=== PATIENT | male | born 1985 | race Caucasian/White ===

== ENCOUNTER 2018-04-05 09:39 | Inpatient (IN) | payer OTHER ==
--- NOTE | 2018-04-05 10:17 | EDPHY ---
H & P Smoking Status: Never smoked Time Seen by Provider: 04/05/18 10:00 HPI/ROS: CHIEF COMPLAINT: Dysphagia, dental pain HISTORY OF PRESENT ILLNESS: 32-year-old male with a history of HIV positive presents to the emergency department complaining of dysphagia over last few days. The patient states that he started having some pain in his left lower tooth that had broken off a few years ago. He noted some mild swelling around the area by the broken tooth and has since swelling to the left side of his neck which she thought was a lymph noted. He has had increasing difficulty swallowing. Not associated with pain. He states the cannot even take a big drink of water because it will feel like it gets stuck. He denies pain in his chest or difficulty breathing. Denies abdominal pain. No vomiting. No fevers or chills. He did take ibuprofen at 6:30 a.m.. REVIEW OF SYSTEMS: Constitutional: No fever, no chills. Eyes: No double or blurry vision. ENT: Dysphagia as above. Fractured tooth. No sore throat. Respiratory: No cough, no shortness of breath. Cardiac: No chest pain. Gastrointestinal: No abdominal pain, vomiting or diarrhea. Genitourinary: No dysuria. Musculoskeletal: No neck or back pain. Skin: No rashes. Neurological: No headache. (Esther Jaramillo) Past Medical/Surgical History: HIV positive diagnosed 3 years ago (Esther Jaramillo) Social History: Single and lives in [place] (Esther Jaramillo) Physical Exam: General Appearance: Alert, no distress. Afebrile. No apparent distress. Eyes: Pupils equal and round. Extraocular motions are all intact. ENT: Mouth: Mucous membranes moist. No muffled voice or trismus. His left lower 3rd molar is fractured. There is some very mild swelling to the buccal mucosa. No gingival mucosal swelling. No evidence of obvious abscess. His neck is supple with palpable left anterior cervical and left submandibular lymphadenopathy. Nontender to palpate. Respiratory: No wheezing, rhonchi, or rales, lungs are clear to auscultation. Cardiovascular: Regular rate and rhythm. Gastrointestinal: Abdomen is soft and nontender, no masses, no rebound or guarding, bowel sounds normal. Neurological: Alert and oriented x 3, cranial nerves II through XII grossly intact Skin: Warm and dry, no rashes. Musculoskeletal: Nontender to palpate along the cervical, thoracic or lumbar spine. Neck is supple. Extremities: Full range of motion and no peripheral edema. Psychiatric: Patient is oriented X 3, there is no agitation. (Esther Jaramillo) Constitutional: Initial Vital Signs Temperature (C) 36.9 C 04/05/18 09:44 Heart Rate 85 04/05/18 09:44 Respiratory Rate 16 04/05/18 09:44 Blood Pressure 161/101 H 04/05/18 09:44 O2 Sat (%) 94 04/05/18 09:44 O2 Delivery Mode Room Air Allergies/Adverse Reactions: No Known Allergies Allergy (Verified 04/05/18 14:03) Home Medications: Medication Instructions Recorded Bictegrav/Emtricit/Tenofov Ala 1 each PO DAILY 04/05/18 [Biktarvy 50-200-25 mg Tablet] Hydrocodone/Acetaminophen [Vicodin 1 each PO Q8HRS PRN 04/05/18 5-300 mg Tablet] Ibuprofen [Motrin (*)] 200 mg PO TID PRN 04/05/18 Amoxicillin/Clavulanate Pot 875 mg PO BID #20 tab 04/06/18 [Augmentin 875 MG TAB (*)] methylPREDNISolone [Medrol Dose 1 each PO AD #1 ea 04/06/18 Doni] Medical Decision Making - Diagnostics Imaging: Discussed imaging studies w/ call or contact centre operator Radiologist - Diagnostics Imaging Results: Imaging Impressions Neck CT 04/05/18 10:21 Impression: Long segment of left parapharyngeal abscess/loculated fluid collections/phlegmon, along with surrounding tissue swelling as above described. Findings and recommendations discussed with Esther Jaramillo PA-C at 1132 hours on April 05, 2018. Final report concurs with initial preliminary interpretation. ED Course/Re-evaluation: 32-year-old male presents to the emergency department with dysphagia. His infectious disease doctor, Dr. Gisele Bustamante, advised he come to the emergency department for evaluation. Given the dysphagia and neck swelling, I recommended CT imaging of the neck with IV contrast. I discussed the pros and cons including radiation exposure and the patient verbalized understanding and agreed. CT imaging revealed parapharyngeal abscess measuring 2.5 x 2 cm x 3.5 cm. This appears to be encroaching on his airway. There is also reactive lymph nodes noted. I spoke with on-call ENT PA, Briana Rangel, who will come to evaluate the patient. The patient was initially given 600 mg of IV clindamycin per ENT request as well as 10 mg of IV Decadron. I spoke with his infectious disease doctor, Dr. Gisele Bustamante, who recommended 3 g of Unasyn Q 6 hr. The patient will be admitted to Dr. Ghislaine Zhou, hospitalist, to the step- down unit. ENT did not feel that incision and drainage was required at this time. They thought it was more of a phlegmon more than a definitive abscess. The case was discussed with Dr. Christopher Ramírez, secondary supervising physician, who did not directly evaluate the patient but agrees with treatment and plan. ( Esther Jaramillo) I did not see this patient while he was in the emergency department. However his care was discussed with the PA while the patient was in the department. I agree with treatment plan and management (Christopher Ramírez) Differential Diagnosis: Including but not limited to abscess, cellulitis, carcinoma (Esther Jaramillo) - Data Points Laboratory Results: Laboratory Results 04/05/18 10:15 04/05/18 10:15 Medications Given: Discontinued Medications Hydrocodone Bitart/Acetaminophen ([place] 5/325) 1 tab PO EDNOW ONE Stop: 04/05/18 15:14 Last Admin: 04/05/18 15:17 Dose: 1 tab Dexamethasone (Decadron Injection) 10 mg IVP EDNOW ONE Stop: 04/05/18 11:55 Last Admin: 04/05/18 12:00 Dose: 10 mg Dexamethasone (Decadron Injection) 8 mg IVP Q12 LEONCIO Stop: 04/06/18 09:01 Last Admin: 04/06/18 08:23 Dose: 8 mg Clindamycin Phosphate/Dextrose (Cleocin 600 Mg (Premix)) 50 mls @ 100 mls/hr IV EDNOW ONE PRN Reason: Protocol Stop: 04/05/18 12:26 Last Admin: 04/05/18 12:01 Dose: 50 mls Ampicillin Sodium/Sulbactam (Sodium 3 gm/ Sodium Chloride) 100 mls @ 200 mls/ hr IV EDNOW ONE PRN Reason: Protocol Stop: 04/05/18 12:53 Last Admin: 04/05/18 12:50 Dose: 100 mls Ampicillin Sodium/Sulbactam (Sodium 3 gm/ Sodium Chloride) 100 mls @ 200 mls/ hr IV Q6H LEONCIO PRN Reason: Protocol Stop: 05/05/18 19:59 Last Admin: 04/06/18 08:23 Dose: 100 mls Ibuprofen (Motrin) 600 mg PO EDNOW ONE Stop: 04/05/18 15:15 Last Admin: 04/05/18 15:17 Dose: 600 mg Ibuprofen (Motrin) 200 mg PO TID PRN PRN Reason: Pain, Mild Stop: 10/02/18 15:56 Last Admin: 04/06/18 05:13 Dose: 200 mg Lorazepam (Ativan Injection) 1 mg IVP EDNOW ONE Stop: 04/05/18 12:49 Last Admin: 04/05/18 12:50 Dose: 1 mg Oxycodone HCl (Oxycodone Ir) 5 - 10 mg PO Q3HRS PRN PRN Reason: Pain, Severe Able to Take PO Stop: 04/15/18 15:53 Last Admin: 04/06/18 05:14 Dose: 10 mg Point of Care Test Results: Chemistry 04/05/18 10:17 POC Sodium 142 mEq/L mEq/L (135-145) POC Potassium 3.9 mEq/L mEq/L (3.3-5.0) POC Chloride 103 mEq/L mEq/L (97-110) POC BUN 10 mg/dL mg/dL (7-23) POC Creatinine 1.0 mg/dL mg/dL (0.7-1.3) POC Glucose 101 mg/dL H mg/dL (70-100) ISTAT H&H 04/05/18 10:17 POC Hgb 15.3 gm/dL gm/dL (13.7-17.5) POC Hct 45 % % (40-51) Departure - Departure Disposition: [facility] Inpatient Acute Clinical Impression: Parapharyngeal abscess Dysphagia Qualifiers: Dysphagia type: unspecified Qualified Code(s): R13.10 - Dysphagia, unspecified Condition: Good
[2018-04-05 10:25] LABS: PLATELET COUNT 164 10^3/uL (150-400)
[2018-04-05] MEDS ORDERED: IOPAMIDOL (ISOVUE-300) 100 ML BTL ONE (11:08)
[2018-04-05] MEDS ORDERED: DEXAMETHASONE 10 MG/ML VIAL IVP ONE (11:54)
[2018-04-05] MEDS ORDERED: CLINDAMYCIN 600 MG/DEXTROSE 50 ML IV ONE (11:57)
[2018-04-05] MEDS ORDERED: AMPICILLIN/SULBACTAM 3 GM in NS 100 ML IV ONE (12:24)
[2018-04-05] MEDS ORDERED: LORazepam 2 MG/ML INJ IVP ONE (12:48)
[2018-04-05] MEDS ORDERED: LORazepam 2 MG/ML INJ ONE (12:49)
--- NOTE | 2018-04-05 14:11 | GCON ---
[f rep st] CONSULTATION INFECTIOUS DISEASE CONSULT DATE OF CONSULTATION: 04/05/2018 REFERRING PHYSICIAN: Christopher Ramírez MD REASON FOR CONSULT: To assist in the management of this 32-year-old male, who is my primary care patient, admitted with peritonsillar abscess. HISTORY OF PRESENT ILLNESS: The patient is a very pleasant 32-year-old male, who is well known to me. His previous medical history is notable for the followin. HIV: The patient was diagnosed August 2015, in the setting of a routine physical exam. His T-cell count at the time of diagnosis was 399 (17%) with a viral load of 268,969. The patient has had no history of complications related to his HIV, and has tolerated antiretrovirals quite well in the form of a recent change to Biktarvy. Most recent viral load undetectable, February 2018, with a T-cell count in December 2017 of 689 (33%). 2. His other medical problems include GERD. Regarding his present issues, the patient states that he was in his usual state of excellent health until last week, approximately , when he noted some discomfort along his left neck and some mild swelling. He felt that it was likely a lymph node, and went on the Internet and researched causes of swollen lymph nodes. He then discovered by reading [employer], that it could be related to his teeth. The patient states he fractured a posterior molar on the left side in the back many years ago on a popcorn kernel, and thought it could be related to that. Therefore, he went to [facility], where he was told that he would ultimately need a root canal, but he was not told that he had an infection, and in fact, the patient's tooth has not been hurting him at all. They gave him oral penicillin, which he has been taking for the past 2 days. Unfortunately, the patient states that he now has a sore throat and difficulty swallowing with worsening swelling of his left neck and problems opening and closing his mouth. This prompted a call to our office this morning. Our nurse appropriately told the patient to go to the emergency room. In the emergency room, the patient was afebrile, but found to have significant swelling of the left neck and trismus. A CT scan was performed of the neck that showed a peritonsillar abscess extending down the neck. ENT was notified and he was given a dose of clindamycin. I am now asked to assist in his management. The patient states he took his Biktarvy this morning. He denies any significant headache, visual changes, but does have the symptoms as outlined above. Otherwise, 10 systems are reviewed and are negative. He does not have problems flexing or extending his neck. No chest discomfort or shortness of breath. The patient is having significant trouble swallowing. He is not dysphonic. Previous medical history as outlined above. ALLERGIES: No known drug allergies. MEDICATIONS: Prior to admission include penicillin VK and Biktarvy 1 tab p.o. daily. SOCIAL HISTORY: The patient has a very supportive partner. He does not smoke or drink alcohol. He is working for the city. FAMILY HISTORY: Noncontributory. REVIEW OF SYSTEMS: As outlined above. Otherwise, 10 systems reviewed and all are negative. PHYSICAL EXAM: VITAL SIGNS: The patient's temperature is 36.9, heart rate 83, blood pressure 156/97, 95% on room air. GENERAL: Well-nourished, well- developed gentleman, looks anxious, but does not look toxic, sitting on the gurney. Obvious left neck swelling is visible. HEENT: Atraumatic, normocephalic. Pupils equal, round and reactive to light. Extraocular movements intact. No conjunctival injection, icterus or petechiae. No sinus tenderness or discharge from the nares. Mucous membranes are moist. The patient has a fractured distal molar on the bottom with no surrounding purulent discharge or tenderness. His uvula is midline, but there is definite fullness visible in the left peritonsillar space. His airway is intact. There is no dysphonia. The patient has trismus and discomfort when he opens and closes his mouth, and a definite fullness and tenderness in his left neck with adenopathy palpable. He is able to flex and extend his neck. The rest of his oropharynx is unremarkable. No evidence of thrush. CARDIOVASCULAR: S1, S2. No rubs, gallops, or murmurs. LUNGS: No increased respiratory effort. Clear to auscultation bilaterally with no rales, rhonchi or wheeze. ABDOMEN: Sof. No organomegaly or tenderness to palpation. EXTREMITIES: No clubbing, cyanosis, or edema. No evidence of arthritis. No rash. NEUROLOGIC: He is alert and oriented x3. No focal deficits. LABORATORY DATA: As outlined above. RADIOGRAPHIC DATA: As outlined above. IMPRESSION: 32-year-old male with well-controlled human immunodeficiency virus with a T- cell count in the mid 600s, who now presents with a peritonsillar abscess. He does not look toxic. Regarding antibiotic choice, given increasing resistance of oral streptococci to clindamycin (most notably of the Streptococcus milleri group), would prefer to use Unasyn and not clindamycin. The patient has no history of MRSA, and no other unusual exposures. His T-cells are excellent, with no risk factors for Pseudomonas, either. Suspect normal polymicrobial oral aries are involved. PLAN: 1. I have spoken with Dr. Davide Thomas of [facility], who will see the patient later today. 2. Discontinue clindamycin. Start Unasyn 3 g IV q.6 hours. 3. The patient's anti-retroviral, Biktarvy is on hold, and I explained to the patient that it is absolutely fine to hold this for a few days if needed. Thank you very much for consulting Infectious Diseases. We will continue to follow the patient with you. /[id number]/MODL MTDD
--- NOTE | 2018-04-05 14:30 | PDCONSULT ---
Court Clerk Note: HPI: This 32 year old male with a history of HIV presented to the ER for dysphagia and throat pain over the last few days. He does note pain from left lower tooth that broke years ago. It is difficult to swallow due to pain. He reports intermittent chills. Denies dyspnea, cough. ROS otherwise negative. Past medical history: HIV positive Social history: never smoker Allergies: NKDA Medications: Biktarvy CT soft tissue head/neck reviewed: Phlegmon at left pharyngeal wall. No discrete abscess. Physical exam: Vital signs: BP 156/97, HR 80, O2 95% RA General: Alert, nontoxic, in no apparent distress. HEENT: Normocephalic, atraumatic. EOMs intact. Ear exam normal. Left neck mildly tender to palpation. No neck edema or erythema. Lower left molar fractured without surrounding erythema or edema. Oropharynx normal. Fiberoptic laryngoscopy: Nasopharynx clear, BOT clear. Mild swelling at left AE fold. Respiratory: Breathing well. Neurologic: Alert and oriented. molasses coloring operator grossly intact. Skin: Warm, dry, no rashes. Assessment/Plan: 32 year old male, HIV positive, with left pharyngeal wall phlegmon. Patient is stable. There is no discrete abscess and we do not recommend surgical intervention at this point. He will be admitted for IV Unasyn and decadron. Plan was discussed with Dr. Beard. We will see patient tomorrow.
[2018-04-05] MEDS ORDERED: HYDROCODONE/APAP 5/325 TAB PO ONE (15:13)
[2018-04-05] MEDS ORDERED: IBUPROFEN 600 MG TAB PO ONE (15:14)
--- NOTE | 2018-04-05 15:49 | PDGENHP ---
History and Physical - Chief Complaint sore throat - History of Present Illness 32 yo M with hx of HIV presenting with left neck pain and swelling. He notes it has also been associated with difficulty swallowing. He has had possible fever, but nothing that he measured. He has otherwise felt well and notes that until this started several days ago he was in good health. He denies drooling or inability to swallow. He has never had this as severe as this is in the past. History Information - Allergies/Home Medication List Allergies/Adverse Reactions: No Known Allergies Allergy (Verified 04/05/18 14:03) Home Medications: Bictegrav/Emtricit/Tenofov Ala [Biktarvy 50-200-25 mg Tablet] 1 each PO DAILY [Last Taken 04/05/18] Hydrocodone/Acetaminophen [Vicodin 5-300 mg Tablet] 1 each PO Q8HRS PRN [Last Taken 04/04/18] Ibuprofen [Motrin (*)] 200 mg PO TID PRN 04/05/18 [Last Taken 04/05/18] Penicillin V Potassium [Penicillin VK] 500 mg PO Q6HRS 04/05/18 [Last Taken 05/16] I have personally reviewed and updated: family history, medical history, social history, surgical history - Past Medical History HIV - Surgical History Reports: no pertinent surgical hx - Family History Positive for: non-pertinent - Social History Smoking Status: Never smoked Alcohol Use: Rarely Drug Use: None Review of Systems Review of Systems: ROS: 10pt was reviewed & negative except for what was stated in HPI & below Physical Exam Physical Exam: Temp Pulse Resp BP Pulse Ox 36.9 C 83 18 156/97 H 95 04/05/18 09:44 04/05/18 12:07 04/05/18 12:07 04/05/18 11:12 04/05/18 12:07 Constitutional: no apparent distress, appears nourished Eyes: PERRL Ears, Nose, Mouth, Throat: moist mucous membranes, other (posterior pharynx erythema/edema without exudate) Cardiovascular: regular rate and rhythym, no murmur, rub, or gallop, No edema Respiratory: no respiratory distress, no rales or rhonchi Gastrointestinal: normoactive bowel sounds, soft, non-tender abdomen Genitourinary: no bladder tenderness Skin: warm, normal color Musculoskeletal: full muscle strength Neurologic: AAOx3 Psychiatric: interacting appropriately, not anxious, not encephalopathic Lab Data & Imaging Review 04/05/18 10:15 04/05/18 10:15 WBC 12.21 10^3/uL (3.80-9.50) H 04/05/18 10:15 RBC 4.52 10^6/uL (4.40-6.38) 04/05/18 10:15 Hgb 15.4 g/dL (13.7-17.5) 04/05/18 10:15 POC Hgb 15.3 gm/dL (13.7-17.5) 04/05/18 10:17 Hct 43.2 % (40.0-51.0) 04/05/18 10:15 POC Hct 45 % (40-51) 04/05/18 10:17 MCV 95.6 fL (81.5-99.8) 04/05/18 10:15 MCH 34.1 pg (27.9-34.1) 04/05/18 10:15 MCHC 35.6 g/dL (32.4-36.7) 04/05/18 10:15 RDW 11.9 % (11.5-15.2) 04/05/18 10:15 Plt Count 164 10^3/uL (150-400) 04/05/18 10:15 MPV 10.2 fL (8.7-11.7) 04/05/18 10:15 Neut % (Auto) 76.1 % (39.3-74.2) H 04/05/18 10:15 Lymph % (Auto) 14.3 % (15.0-45.0) L 04/05/18 10:15 [place] % (Auto) 8.2 % (4.5-13.0) 04/05/18 10:15 Eos % (Auto) 0.9 % (0.6-7.6) 04/05/18 10:15 Baso % (Auto) 0.2 % (0.3-1.7) L 04/05/18 10:15 Nucleat RBC Rel Count 0.0 % (0.0-0.2) 04/05/18 10:15 Absolute Neuts (auto) 9.29 10^3/uL (1.70-6.50) H 04/05/18 10:15 Absolute Lymphs (auto) 1.74 10^3/uL (1.00-3.00) 04/05/18 10:15 Absolute Monos (auto) 1.00 10^3/uL (0.30-0.80) H 04/05/18 10:15 Absolute Eos (auto) 0.11 10^3/uL (0.03-0.40) 04/05/18 10:15 Absolute Basos (auto) 0.03 10^3/uL (0.02-0.10) 04/05/18 10:15 Absolute Nucleated RBC 0.00 10^3/uL (0-0.01) 04/05/18 10:15 Immature Gran % 0.3 % (0.0-1.1) 04/05/18 10:15 Immature Gran # 0.04 10^3/uL (0.00-0.10) 04/05/18 10:15 POC Sodium 142 mEq/L (135-145) 04/05/18 10:17 Sodium 143 mEq/L (135-145) 04/05/18 10:15 POC Potassium 3.9 mEq/L (3.3-5.0) 04/05/18 10:17 Potassium 4.3 mEq/L (3.3-5.0) 04/05/18 10:15 POC Chloride 103 mEq/L (97-110) 04/05/18 10:17 Chloride 107 mEq/L (97-110) 04/05/18 10:15 Carbon Dioxide 24 mEq/l (22-31) 04/05/18 10:15 Anion Gap 12 mEq/L (8-16) 04/05/18 10:15 POC BUN 10 mg/dL (7-23) 04/05/18 10:17 BUN 11 mg/dL (7-23) 04/05/18 10:15 Creatinine 0.8 mg/dL (0.7-1.3) 04/05/18 10:15 POC Creatinine 1.0 mg/dL (0.7-1.3) 04/05/18 10:17 Estimated GFR > 60 04/05/18 10:15 Glucose 95 mg/dL (70-100) 04/05/18 10:15 POC Glucose 101 mg/dL (70-100) H 04/05/18 10:17 Calcium 9.2 mg/dL (8.5-10.4) 04/05/18 10:15 Visualized and Interpreted imaging results: Yes Interpretation: neck CT: left parapharyngeal abscess Assessment & Plan Assessment: 32yo M with PMH of HIV admitted with left parapharyngeal abscess/phlegmon # left parapharyngeal abscess/phlegmon: evaluated by ENT and ID, started on clindamycin and decadron and is already feeling better. ENT feels that this will likely resolve without surgical intervention, however will need close monitoring in ICU and if any decompensation will need to reconsider. Unasyn/ decadron # HIV: well controlled and without prior complications, on bictarvy as an OP, per ID will need to hold for the time being # HTN: mildly elevated bp but in the setting of above, will monitor but likely related to anxiety/pain # IP status, will need close monitoring in ICU for above Patient new to my care. Old records reviewed/summarized as above. Care plan reviewed with ER doctor.
[2018-04-05] MEDS ORDERED: ONDANSETRON DISINTEGRATING 4 MG TAB PO PRN (15:54)
[2018-04-05] MEDS ORDERED: PROMETHAZINE HCL 25 MG/ML INJ IVP PRN (15:54)
[2018-04-05] MEDS ORDERED: LORazepam 0.5 MG TAB PO PRN (15:54)
[2018-04-05] MEDS ORDERED: ACETAMINOPHEN 325 MG TAB PO PRN (15:54)
[2018-04-05] MEDS ORDERED: LORazepam 2 MG/ML INJ IVP PRN (15:54)
[2018-04-05] MEDS ORDERED: ONDANSETRON 4 MG/2 ML VIAL IVP PRN (15:54)
[2018-04-05] MEDS ORDERED: HYDROmorphone HCL/NS 0.5 MG/ML SYR IVP PRN (15:54)
[2018-04-05] MEDS: oxyCODONE IR 5 MG TAB PO PRN (20:06)
[2018-04-05] MEDS: AMPICILLIN/SULBACTAM 3 GM in NS 100 ML IV SCH (20:08)
[2018-04-05] MEDS: DEXAMETHASONE 10 MG/ML VIAL IVP SCH (21:27)
[2018-04-05] MEDS: IBUPROFEN 200 MG TAB PO PRN (21:49)
[2018-04-06] MEDS: AMPICILLIN/SULBACTAM 3 GM in NS 100 ML IV SCH ×2 (02:00→08:23)
[2018-04-06] MEDS: IBUPROFEN 200 MG TAB PO PRN (05:13)
[2018-04-06] MEDS: oxyCODONE IR 5 MG TAB PO PRN (05:14)
[2018-04-06 06:22] LABS: PLATELET COUNT 190 10^3/uL (150-400)
--- NOTE | 2018-04-06 07:59 | PDMN ---
Medical Necessity Medical necessity: MCG: M70 cellulitis: parapharyngeal abscess/phlegmon in an immuncopromised pt with HIV, further monitoring and tx needed > 2 midnights
[2018-04-06 08:22] VITALS: BP 159/93
[2018-04-06] MEDS: DEXAMETHASONE 10 MG/ML VIAL IVP SCH (08:23)
--- NOTE | 2018-04-06 08:46 | SOAPPROG ---
SOAP Progress Note Assessment/Plan: pt seen by Dr. Neha batista. He is doing well. Afebrile, good ROM. Less tender/swollen O- neck- less swollen, good ROM Plan:Pt with phlegmon, improving. Dr. costello spoke with PCP. He can be discharged home on oral medications. His WBC are likely elevated as a result of the steroids. 04/06/18 08:44 Objective: Vital Signs Temp Pulse Resp BP Pulse Ox 36.6 C 80 13 159/93 H 94 04/06/18 08:20 04/06/18 08:20 04/06/18 08:20 04/06/18 08:20 04/06/18 08:20 Laboratory Results 04/06/18 06:06 04/05/18 04/06/18 04/07/18 05:59 05:59 05:59 Intake Total 1700 Balance 1700 ICD10 Worksheet Patient Problems: Problems Problem Status Onset Dysphagia Acute Parapharyngeal abscess Acute
--- NOTE | 2018-04-06 09:51 | PCMIDPN ---
Assessment/Plan: 1. Parapharyngeal phlegmon versus abscess: CT reviewed again with Dr. Delgado. They feel that radiographic findings are consistent with an abscess versus phlegmon. Long conversation with Dr. Thomas. He feels that this can be followed conservatively without surgical intervention. Patient is much better today and would like to go home. He is able to swallow and is eating his breakfast. No further sore throat, and the swelling in his left neck is markedly better. Explained the importance of following up with ENT next Monday or Monday, and the patient will make an appointment. I gave him a script for Augmentin 875 mg 1 tab p.o. Twice daily for 10 days . He understands that should his sore throat or neck swelling worsen he needs to come to the ER right away. Also of note, told the patient that he should not take any additional penicillin and that his new antibiotic will be Augmentin. Expressed understanding. 2. HIV: Resume Biktarvy when he gets home. 04/06/18 09:51 04/06/18 09:52 Subjective: Standing up, eating his [place] toast. Feels much better and is eager to go home. No sore throat; swelling in the left neck is much better. No diarrhea on the antibiotics Objective: Unasyn 3 g IV q.6 hours day 1 No fevers Vital Signs Temp Pulse Resp BP Pulse Ox 36.6 C 80 13 159/93 H 94 04/06/18 08:20 04/06/18 08:20 04/06/18 08:20 04/06/18 08:20 04/06/18 08:20 Laboratory Results 04/06/18 06:06 04/05/18 04/06/18 04/07/18 05:59 05:59 05:59 Intake Total 1700 Balance 1700 - Physical Exam General Appearance: alert, no apparent distress EENT: other (Tonsils on the left look normal today without the fullness and shift toward the midline as seen yesterday. Left neck swelling much better. Able to flex and extend his neck without any difficulty.) Respiratory: lungs clear ICD10 Worksheet Patient Problems: Problems Problem Status Onset Dysphagia Acute Parapharyngeal abscess Acute
--- NOTE | 2018-04-06 09:52 | PDDCSUM ---
Discharge Summary Discharge Summary: Dates of service 04/05-04/06/18 Consultations: ENT, ID Procedures performed: neck CT Hospital course by problem: 32yo M with PMH of HIV admitted with left parapharyngeal phlegmon # left parapharyngeal phlegmon: evaluated by ENT and ID, started on unasyn and decadron and is much improved overnight. Plan will be to dc on augmentin and medrol dose pack. Plan reviewed with ID, has follow up arranged with ID established. Improved quicker than expected. # HIV: well controlled and without prior complications, continue on bictarvy, can resume today # HTN: mildly elevated bp but in the setting of above, recommend outpatient f/u to be sure this doesn't need treatment Patient discharged home in good condition f/u with ID as scheduled, return precautions given > 35 min spent in dc more than half in coordination of care
--- NOTE | 2018-04-06 11:20 | ASDISCHSUM ---
Discharge Information Plan Status:Home with No Needs Medically Cleared to Leave: Discharge Date: D/C Disposition: ADT D/C Disposition:Home, Routine, Self-Care Projected Discharge Date: Transportation at D/C:Family Discharge Delay Reason: Follow-Up Date: Discharge Slot: Final Diagnosis: Placement Information Patient Contact Information Contact Name:BIJU Relationship:Mother Address:[address] [place] [address] City:[place] Alternate Phone: State/Zip Code:[place] [address] Email: Financial Information Financial Class:[employer] Primary Plan Desc:ESTUARDO BERNABE Primary Plan Number:[id number] Secondary Plan Desc: Secondary Plan Number: Assessment Information LACE LACE Length of stay for Answers: 1 day current admission Acuity / Level of Answers: Yes Care: Did the patient have an inpatient admission? Comorbidities - select Answers: Other Notes: HIV positive all that apply # of Emergency department Answers: 1-2 visits in the last 6 months Score: 6 Date Signed: 04/06/2018 11:17 AM Electronically Signed By:Adrienne Mohr Intervention Information
--- NOTE | 2018-04-06 11:57 | ASMTCMCOM ---
CM Note CM Note Notes: Pt hospitalized for left neck pain and swelling. Pt medically clear and ready for D/C. Pt will D/C ed home today independently as he has no after care needs. D/C Plan: Independent. Date Signed: 04/06/2018 11:57 AM Electronically Signed By:Adrienne Mohr
[2018-04-06] MEDS ORDERED: DEXAMETHASONE 4 MG TAB PO SCH (21:00)
== END 2018-04-06 10:45 | disposition home or self-care (01) | DRG 153 ==
LOC: OBSVTOIN 13:54 → F2N 19:45
PROVIDERS: ADMIT Internal Medicine; ATTEND Internal Medicine
DX: J36 Peritonsillar abscess (principal); K08.89 Other specified disorders of teeth and supporting structures; Z21 Asymptomatic human immunodeficiency virus [HIV] infection status; K21.9 Gastro-esophageal reflux disease without esophagitis
CPT/HCPCS: 82435-PO; 82565-PO; 82947-PO; 84132-PO; 84295-PO; 84520-PO; 85014-PO; J0295; J1100; J2060; Q9967